=== PATIENT | female | born 1960 | race Caucasian/White ===

== ENCOUNTER 2018-09-27 15:33 | Outpatient (CLI) | payer OTHER ==
[2018-09-27 15:55] LABS: Anion Gap 16 mmol/L (10-20); Carbon Dioxide 27 mmol/L (22-29); Chloride 99 mmol/L (98-107); Sodium 138 mmol/L (136-145)
== END 2018-09-27 15:34 | disposition home or self-care (01) ==
LOC: MADLAB 15:33
PROVIDERS: ATTEND Family Medicine
DX: Z02.9 Encounter for administrative examinations, unspecified (principal)
CPT/HCPCS: 36415; 80051

== ENCOUNTER 2018-09-29 12:45 | Outpatient (CLI) | payer OTHER ==
--- NOTE | 2018-09-29 13:31 | RAD ---
TWO VIEWS CHEST: Date: 09-29-18 Provided Clinical History: Cough and congestion. FINDINGS: Cardiac and mediastinal silhouette is within normal limits. No infiltrate. No pleural fluid or pneumo thorax apparent. IMPRESSION: No evidence for an acute cardiopulmonary process. POS: [facility]
== END 2018-09-29 12:46 | disposition home or self-care (01) ==
LOC: MADRAD 12:45
PROVIDERS: ATTEND Family Medicine
DX: J18.1 Lobar pneumonia, unspecified organism (principal)
CPT/HCPCS: 71046

== ENCOUNTER 2019-09-20 07:55 | Outpatient (CLI) | payer OTHER ==
--- NOTE | 2019-09-20 09:05 | ULT ---
Exam: Bilateral renal ultrasound HISTORY: Chronic kidney disease COMPARISON: None FINDINGS: Right kidney: Normal cortical echotexture. No hydronephrosis. Mild renal cortical thinning. Right kidney measurements: 9.4 x 3.9 x 5.3 cm. Left kidney: Normal cortical echotexture. No hydronephrosis. Mild left renal cortical thinning. There is a anechoic focus in the cortex measuring 1.7 x 1.6 x 1.5 cm, with through transmission. Cyst is favored. Left kidney measurements 9.6 x 5.5 x 4.5 cm. Urinary bladder: Normal mucosa. No significant post void residual. IMPRESSION: No hydronephrosis.
== END 2019-09-20 07:56 | disposition home or self-care (01) ==
LOC: MADULT 07:55
DX: N18.2 Chronic kidney disease, stage 2 (mild) (principal)
CPT/HCPCS: 76770

== ENCOUNTER 2022-08-19 11:22 | Outpatient (CLI) | payer BC | END 2022-08-19 11:23 | disposition home or self-care (01) | LOC: MADRAD 11:22 | PROVIDERS: ATTEND Family Medicine | DX: R06.02 Shortness of breath (principal) | CPT/HCPCS: 71046 ==

== ENCOUNTER 2025-05-14 08:10 | Outpatient (CLI) | payer BC ==
[2025-05-14 08:36] LABS: #Basophils 0.1 thou/uL (0.0-0.2); #Eosinophils 0.3 thou/uL (0.0-0.7); #Lymphocytes 2.0 thou/uL (1.20-3.40); #Monocytes 0.5 thou/uL (0.11-0.59); #Neutrophils 4.3 thou/uL (1.40-6.50); %Basophils 1.0 % (0.0-1.0); %Eosinophils 3.8 % (0.0-10.0); %Lymphocytes 28.0 % (21.0-51.0); %Monocytes 7.6 % (0.0-10.0); %Neutrophils 59.7 % (42.0-75.0); Hematocrit 37.4 % (36.0-47.0); Hemoglobin 11.7 g/dL (12.0-16.0); Mean Corpuscular Hemoglobin 29.6 pg (27.0-31.0); Mean Corpuscular Volume 94.3 fl (78.0-98.0); Platelet Count 190 10x3/uL (130-400); Red Blood Cell (RBC) Count 3.96 mill/uL (4.20-5.40); White Blood Cell (WBC) Count 7.1 10x3/uL (4.8-10.8)
[2025-05-14 08:37] LABS: Glucose, Urine (Dipstick) Negative (Negative); Leukocyte Small (Negative); Protein, Urine (Dipstick) 30 mg/dL (Neg-Trace); Specific Gravity, Urine 1.025 (1.005-1.030)
[2025-05-14 08:47] LABS: Bacteria/HPF 2+ HPF (None Seen); RBC/HPF 0-3 HPF (0-3); WBC/HPF 21-50 HPF (0-3)
[2025-05-14 08:50] LABS: ALT (SGPT) 37 U/L (Less than 34); AST (SGOT) 35 U/L (11-34); Albumin 4.0 g/dL (3.1-4.5); Alkaline Phosphatase 82 U/L (40-110); Anion Gap 13 mmol/L (10-20); BUN (Urea Nitrogen) 19 mg/dL (9.8-20.1); Bilirubin, Total 0.4 mg/dL (0.3-1.2); Calc. Creatinine Clearance 0 mL/min (70-130); Calcium 8.9 mg/dL (7.8-10.44); Carbon Dioxide 26 mmol/L (23-31); Cardiac Risk 5.2 (Less than 4.5); Chloride 107 mmol/L (98-107); Cholesterol 198 mg/dl (< 200 Desired); Globulin 2.6 g/dL (2.4-3.5); Glucose 114 mg/dL (80-115); HDL Cholesterol 38 mg/dL (>60 Neg Risk); LDL Cholesterol, Calculated 133 mg/dL; Potassium 4.4 mmol/L (3.5-5.1); Sodium 142 mmol/L (136-145); Triglycerides 137 mg/dL (Less than 150)
== END 2025-05-14 08:11 | disposition home or self-care (01) ==
LOC: MADLAB 08:10
PROVIDERS: ATTEND Family Medicine
DX: Z00.00 Encounter for general adult medical examination without abnormal findings (principal)
CPT/HCPCS: 36415; 80053; 80061; 81001; 84443; 85025